=== PATIENT | female | born 1980 | race Caucasian/White ===

== ENCOUNTER 2016-08-13 06:39 | Emergency (ER) | payer OTHER ==
[~2016-08-13] VITALS: Ht 162.6 cm; Wt 46.7 kg
[~2016-08-13 06:39] MED LIST: ALBUTEROL SULF8.5 GM INH; AMBIEN10 MG ORAL; AMITRIPTYLINE100 M1 ORAL; AMITRIPTYLINE100 MG ORAL; AMITRIPTYLINE25 MG PO; ATIVAN0.5 MG ORAL; BACTRIM-DS1 EA ORAL; CIPRO500 MG PO; CLINDAMYCIN HC300 MG PO; CYMBALTA30 MG PO; EXCEDRIN MIGRA1 EAC1 PO; FLONASE ALLERG9.9 ML NS; GABAPENTIN800 MG ORAL; HYDROCORTISON28.4 G5 TOPIC; HYDROXYZINE HCL50 M1 PO; IBUPROFEN600 MG ORAL; IBUPROFEN800 MG ORAL; KEFLEX500 MG ORAL; LYRICA150 MG ORAL; NAPROSYN500 M1 ORAL; NORCO 5-325 TA1 EACH ORAL; PERCOCET 5-3251 EACH ORAL; PROZAC40 MG ORAL; ROBAXIN500 MG PO; TRAMADOL HCL50 MG ORAL; VALIUM10 MG ORAL; VENTOLIN HFA18 GM INH; VICODIN 5-5001 EACH PO; VYVANSE70 MG ORAL; XANAX2 MG ORAL
[2016-08-13] MEDS ORDERED: Ketorolac 60mg Inj IM ONE (07:00)
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
[2016-08-13 08:06] VITALS: BP 131/86
[2016-08-13] MEDS ORDERED: TRAMADOL HCL50 MG ORAL (08:06)
[2016-08-13] MEDS ORDERED: ROBAXIN500 MG PO (08:06)
[2016-08-13] MEDS ORDERED: IBUPROFEN600 MG ORAL (08:06)
[2016-08-13 08:10] VITALS: BP 131/86
--- NOTE | 2016-08-13 08:37 | Diagnostic Imaging Report ---
Indications: Left scapular pain for 3 months Technique: 2 views left scapula Findings: Comparison: Chest radiograph 04/20/11 No fracture, dislocation, lytic destruction, periosteal reaction, surrounding soft tissue swelling, or other acute change is demonstrated. No deformity, alignment abnormality, arthritic change, soft tissue calcification, or other chronic change is demonstrated. IMPRESSION: Negative left scapula series.
--- NOTE | 2016-08-13 08:37 | Diagnostic Imaging Report ---
Indications: Left shoulder pain for 3 months Technique: 3 views of the left shoulder Findings: Comparison: Chest radiograph 04/20/11 No fracture, dislocation, lytic destruction, periosteal reaction, surrounding soft tissue swelling, or other acute change is demonstrated. No deformity, alignment abnormality, arthritic change, soft tissue calcification, or other chronic change is demonstrated. IMPRESSION: Negative left shoulder series.
== END 2016-08-13 08:15 | disposition home or self-care (01) ==
LOC: EMR 07:00
DX: S46.912A Strain of unspecified muscle, fascia and tendon at shoulder and upper arm level, left arm, initial encounter (principal); R11.0 Nausea; R20.0 Anesthesia of skin; F17.200 Nicotine dependence, unspecified, uncomplicated; Z87.19 Personal history of other diseases of the digestive system; Z87.09 Personal history of other diseases of the respiratory system
CPT/HCPCS: 96372; 99284

== ENCOUNTER 2017-11-16 19:39 | Emergency (ER) | payer OTHER ==
[~2017-11-16] VITALS: Ht 167.6 cm; Wt 56.7 kg
[2017-11-16] MEDS ORDERED: Tetracaine 0.5% Opth 4ml Soln RIGHT EYE ONE (20:00)
[2017-11-16] MEDS ORDERED: Fluorescein Strips RIGHT EYE ONE (20:00)
[2017-11-16] MEDS ORDERED: AKTOB1 DROP RIGHT EYE (20:43)
[2017-11-16 20:56] VITALS: BP 110/71
[2017-11-16 20:58] VITALS: BP 110/71
--- NOTE | 2017-11-16 21:11 | Emergency Room Report ---
History of Present Illness General Chief Complaint: Eye Problems Source: Patient Present Illness HPI 37-year-old female wears contact lenses presents with right thigh pain, states that she saw to the [place] yesterday/last night. complaining of right eye pain. Feels like something is in her eye. No other complaints. Tetanus is up-to-date Allergies: Coded Allergies: No Known Allergies (Verified Allergy, Unknown, 04/27/08) Patient History Past Medical History: see triage record Past Surgical History: none Pertinent Family History: none Last Menstrual Period: november Reviewed Nursing Documentation: PMH: Agreed; PSxH: Agreed Nursing Documentation-PMH Hx Hypertension: No Hx Pacemaker: No Hx Asthma: Yes Hx COPD: No Hx Diabetes: No Hx Cancer: No Hx Gastrointestinal Problems: Yes - FIBROMYALGIA Hx Dialysis: No Hx Cerebrovascular Accident: No Hx Seizures: No Review of Systems All Other Systems: negative except mentioned in HPI Physical Exam Vital Signs Date Time Temp Pulse Resp B/P (MAP) Pulse Ox O2 Delivery O2 Flow Rate FiO2 11/16/17 19:45 98.2 83 16 115/73 96 Room Air 98.2 Sp02 EP Interpretation: reviewed, normal General Appearance: normal inspection, well appearing, no apparent distress, alert, GCS 15, non-toxic Head: normocephalic, atraumatic Eyes: bilateral eye PERRL, bilateral eye EOMI, bilateral eye other - Right eye fluorescing stain with very small corneal abrasion noted ENT: normal ENT inspection, normal pharynx, normal voice, moist mucus membranes Respiratory: normal inspection Cardiovascular #1: normal inspection Gastrointestinal: normal inspection Musculoskeletal: normal inspection, normal range of motion Neurologic: normal inspection, alert, oriented x3, responsive Psychiatric: normal inspection, judgement/insight normal Medical Decision Making Diagnostic Impression: Primary Impression: Corneal abrasion, right ER Course 37-year-old female with right eye pain DDX: Corneal abrasion Plan: None ER course: Patient has remained stable during ED stay. Disposition: Patient is to be discharged to home. Prescriptions given are tobramycin eyedrops Patient is instructed to follow up with their compliance administrator in one week Please note that this Emergency Department Report was dictated using [employer] designer technology software, occasionally this can lead to erroneous entry secondary to interpretation by the dictation equipment Last Vital Signs Date Time Temp Pulse Resp B/P (MAP) Pulse Ox O2 Delivery O2 Flow Rate FiO2 5/8/18 20:58 98.2 74 16 110/71 96 Room Air 98.2 Disposition: HOME, SELF-CARE Condition: Stable Scripts Tobramycin Sulf (Tobramycin) 5 Ml Drops 1 DROP RIGHT EYE Q4H for 5 Days, #1 TUBE Prov: Claus Valdovinos M.D. 11/16/17 Patient Instructions: Corneal Abrasion, [id number] Claus Valdovinos M.D. November 16, 2017 21:11
== END 2017-11-16 20:59 | disposition home or self-care (01) ==
LOC: EMR 20:31
DX: S05.01XA Injury of conjunctiva and corneal abrasion without foreign body, right eye, initial encounter (principal); X58.XXXA Exposure to other specified factors, initial encounter; Y92.9 Unspecified place or not applicable; J45.909 Unspecified asthma, uncomplicated
CPT/HCPCS: 99283

== ENCOUNTER 2018-11-10 22:35 | Emergency (ER) | payer OTHER ==
[~2018-11-10] VITALS: Ht 165.1 cm; Wt 63.5 kg
[~2018-11-10 22:35] MED LIST changes: +AKTOB1 DROP RIGHT EYE
--- NOTE | 2018-11-10 22:50 | NUR ---
PT CALLED FOR TRIAGE AND OUTSIDE FEEDING DOG.
--- NOTE | 2018-11-10 23:02 | NUR ---
PT CALLED AGAIN AND NOT IN LOBBY, WENT OUT TO FEED DOG.
--- NOTE | 2018-11-10 23:11 | Emergency Room Report ---
History of Present Illness General Chief Complaint: To Be Triaged Source: Patient Present Illness HPI Patient presents with chief complaint of medication refill. She checked in and said that she has to go fever dog and never returned. I did not see her. She was not triaged. Allergies: Coded Allergies: No Known Allergies (Verified Allergy, Unknown, 04/27/08) Patient History Past Medical History: see triage record, old chart reviewed Past Surgical History: other Pertinent Family History: none Social History: Denies: smoking Now: No Immunizations: other Reviewed Nursing Documentation: PMH: Agreed; PSxH: Agreed Nursing Documentation-PMH Hx Hypertension: No Hx Pacemaker: No Hx Asthma: Yes Hx COPD: No Hx Diabetes: No Hx Cancer: No Hx Gastrointestinal Problems: Yes - FIBROMYALGIA Hx Dialysis: No Hx Cerebrovascular Accident: No Hx Seizures: No Medical Decision Making Disposition: LEFT W/OUT BEING SEEN [facility]errals: [facility] (PCP) Suresh Huitron MD November 10, 2018 23:11
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
[2018-11-10 23:21] VITALS: BP 123/65
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
[2018-11-10 23:31] VITALS: BP 123/65
--- NOTE | 2018-11-10 23:31 | NUR ---
ER DISCHARGE NOTE: Patient is cleared to be discharged per Dr. Huitron. Splin applied to her left forearm. Pt is aox4 on room air with stable vital signs. Pt was given D/C and prescription instructions and was able to verbalize understanding. Pt's ID band removed. Pt is able to ambulate with steady gait and took all belongings. Pt denied that she is homeless.
== END 2018-11-10 23:31 | disposition home or self-care (01) ==
LOC: EMR 23:00
DX: M25.532 Pain in left wrist (principal); J45.909 Unspecified asthma, uncomplicated; M79.7 Fibromyalgia
CPT/HCPCS: 99281

== ENCOUNTER 2019-02-27 04:08 | Emergency (ER) | payer OTHER ==
[~2019-02-27] VITALS: Ht 167.6 cm; Wt 54.4 kg
[2019-02-27 04:30] VITALS: BP 143/72
--- NOTE | 2019-02-27 04:31 | NUR ---
ED Nurse Note: Pt ambulated to ED from home c/o / R sided pain x1week, hx of Fibromyalgia, VSS A&Ox4
[2019-02-27] MEDS ORDERED: Ketorolac 60mg Inj IM ONE (04:45)
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
[2019-02-27] MEDS ORDERED: CYMBALTA60 MG ORAL (04:49)
[2019-02-27] MEDS ORDERED: NAPROXEN250 MG ORAL (04:49)
[2019-02-27] MEDS ORDERED: PAMELOR25 MG ORAL (04:49)
[2019-02-27] MEDS ORDERED: ROBAXIN500 MG PO (04:59)
[2019-02-27 05:00] VITALS: BP 143/72
--- NOTE | 2019-02-27 05:00 | NUR ---
ER DISCHARGE NOTE: Patient is cleared to be discharged per ERMD, pt is aox4, on room air, with stable vital signs. pt was given dc and prescription instructions, pt was able to verbalize understanding, pt id band removed. pt is able to ambulate with steady gait. pt took all belongings.
[2019-02-27] MEDS ORDERED: PROPRANOLOL HCL20 MG ORAL (05:01)
== END 2019-02-27 05:00 | disposition home or self-care (01) ==
LOC: EMR 04:37
DX: M79.7 Fibromyalgia (principal); S29.011A Strain of muscle and tendon of front wall of thorax, initial encounter; J45.909 Unspecified asthma, uncomplicated; F17.200 Nicotine dependence, unspecified, uncomplicated; F19.10 Other psychoactive substance abuse, uncomplicated; Z76.0 Encounter for issue of repeat prescription; X50.9XXA Other and unspecified overexertion or strenuous movements or postures, initial encounter; Y92.9 Unspecified place or not applicable
CPT/HCPCS: 96372; 99283

== ENCOUNTER 2020-06-08 09:15 | Emergency (ER) | payer OTHER ==
[~2020-06-08] VITALS: Ht 165.1 cm; Wt 54.4 kg
[~2020-06-08 09:15] MED LIST changes: +CYMBALTA60 MG ORAL; +IBUPROFEN600 M1 ORAL; +NAPROXEN250 MG ORAL; +NITROFURANTOIN100 M2 ORAL; +PAMELOR25 MG ORAL; +PROPRANOLOL HCL20 MG ORAL; +ROBAXIN-500MG ORAL
[2020-06-08] MEDS ORDERED: VYVANSE40 MG ORAL (09:26)
[2020-06-08 09:35] VITALS: BP 122/78
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
[2020-06-08] MEDS ORDERED: ALBUTEROL SULF8.5 G1 INH (10:28)
[2020-06-08] MEDS ORDERED: NAPROXEN250 MG ORAL (10:28)
[2020-06-08] MEDS ORDERED: ROBAXIN-500MG ORAL (10:28)
[2020-06-08] MEDS ORDERED: GABAPENTIN400 MG ORAL (10:28)
[2020-06-08] MEDS ORDERED: PAMELOR25 MG ORAL ×2 (10:28)
[2020-06-08] MEDS ORDERED: CYMBALTA60 MG ORAL (10:28)
[2020-06-08] MEDS ORDERED: Bacitracin Oint UD TOPIC ONE (10:30)
[2020-06-08] MEDS ORDERED: Ketorolac 60mg Inj IM ONE (10:30)
[2020-06-08] MEDS ORDERED: Naproxen 500mg tab ORAL ONE (10:30)
[2020-06-08] MEDS ORDERED: Tetanus/Diptheria/Pertussis IM ONE (10:30)
[2020-06-08 11:21] VITALS: BP 122/78
== END 2020-06-08 11:22 | disposition home or self-care (01) ==
LOC: EMR 10:10
DX: F31.9 Bipolar disorder, unspecified (principal); F98.8 Other specified behavioral and emotional disorders with onset usually occurring in childhood and adolescence; S20.229A Contusion of unspecified back wall of thorax, initial encounter; S40.819A Abrasion of unspecified upper arm, initial encounter; T74.11XA Adult physical abuse, confirmed, initial encounter; J45.909 Unspecified asthma, uncomplicated; Y04.2XXA Assault by strike against or bumped into by another person, initial encounter; Y93.9 Activity, unspecified; Y92.9 Unspecified place or not applicable
CPT/HCPCS: 90471; 90715; 96372; Z7502; 99283

== ENCOUNTER 2020-06-27 09:58 | Emergency (ER) | payer OTHER ==
[~2020-06-27] VITALS: Ht 162.6 cm; Wt 56.7 kg
[~2020-06-27 09:58] MED LIST changes: +ALBUTEROL SULF8.5 G1 INH; +GABAPENTIN400 MG ORAL; +VYVANSE40 MG ORAL
[2020-06-27 10:17] VITALS: BP 130/90
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
[2020-06-27 10:57] LABS: APPEARANCE,URINE CLOUDY; BILIRUBIN, URINE NEGATIVE (NEGATIVE); COLOR,URINE YELLOW; GLUCOSE, URINE (UA) NEGATIVE (NEGATIVE); KETONES,URINE NEGATIVE (NEGATIVE); PH,URINE 6.5 (4.5-8.0); PROTEIN,URINE NEGATIVE (NEGATIVE)
[2020-06-27 10:58] LABS: LEUKOCYTE ESTERASE ,URINE 3+ (NEGATIVE); NITRITE,URINE POSITIVE (NEGATIVE); UROBILINOGEN,URINE NORMAL MG/DL (0.0-1.0)
[2020-06-27] MEDS ORDERED: Ketorolac 30mg Inj IV ONE (11:15)
[2020-06-27] MEDS ORDERED: Bacitracin Oint UD TOPIC ONE (11:15)
[2020-06-27] MEDS ORDERED: Lidocaine 1%/ 10mg/ml/EPI 0.01mg/ml 20ml INJ ONE (11:26)
[2020-06-27 11:50] LABS: EOSINOPHILS % (AUTO) 5.3 % (0.0-3.0); HEMATOCRIT 34.4 % (37.0-47.0); HEMOGLOBIN 11.6 G/DL (12.0-16.0); LYMPHOCYTES % (AUTO) 22.7 % (20.0-45.0); MEAN CORPUSCULAR VOLUME 82 FL (80-99); MONOCYTES % (AUTO) 8.3 % (1.0-10.0); NEUTROPHILS % (AUTO) 62.7 % (45.0-75.0); PLATELET COUNT 326 K/UL (150-450); RED BLOOD COUNT 4.18 M/UL (4.20-5.40); RED CELL DISTRIBUTION WIDTH 13.4 % (11.6-14.8); WHITE BLOOD COUNT 7.7 K/UL (4.8-10.8)
[2020-06-27 11:55] LABS: ANION GAP 7 mmol/L (5-15); BLOOD UREA NITROGEN 11 mg/dL (7-18); CALCIUM 9.3 MG/DL (8.5-10.1); CARBON DIOXIDE 27 MMOL/L (21-32); CHLORIDE 101 MMOL/L (98-107); CREATININE 0.8 MG/DL (0.55-1.30); POTASSIUM 4.1 MMOL/L (3.5-5.1); SODIUM 135 MMOL/L (136-145)
[2020-06-27 11:57] LABS: INR 1.1 (0.9-1.1)
[2020-06-27 12:00] LABS: ALANINE AMINOTRANSFERASE 15 U/L (12-78); ALBUMIN 3.3 G/DL (3.4-5.0); ALBUMIN/GLOBULIN RATIO 0.7 (1.0-2.7); ALKALINE PHOSPHATASE 83 U/L (46-116); ASPARTATE AMINO TRANSFERASE 15 U/L (15-37); BILIRUBIN,TOTAL 0.2 MG/DL (0.2-1.0); CREATINE KINASE 59 U/L (26-308)
[2020-06-27 13:37] VITALS: BP 131/85
[2020-06-27] MEDS ORDERED: CYMBALTA60 MG ORAL (14:13)
[2020-06-27] MEDS ORDERED: GABAPENTIN400 MG ORAL (14:13)
[2020-06-27] MEDS ORDERED: NITROFURANTOIN100 M2 ORAL (14:13)
[2020-06-27] MEDS ORDERED: NAPROXEN250 MG ORAL (14:13)
[2020-06-27 14:22] VITALS: BP 131/85
--- NOTE | 2020-06-27 14:36 | Diagnostic Imaging Report ---
Indication: Abdominal pain Technique: Supine view of the abdomen Comparison: none Findings: Considerable gas is seen in nondilated large and small bowel. Moderate retained stool is seen within the colon. No gaseous distention of large or small bowel. No masses or unusual calcifications Impression: Nonspecifically prominent, gas-filled but not focally dilated large and small bowel. No definite acute process
--- NOTE | 2020-06-27 14:37 | Diagnostic Imaging Report ---
Indication: Cough Technique: One view of the chest Comparison: 04/20/2011 Findings: Lungs and pleural spaces are clear. Heart size is normal. No significant change Impression: No acute process
== END 2020-06-27 14:23 | disposition home or self-care (01) ==
LOC: EMR 10:20
DX: R10.84 Generalized abdominal pain (principal); N30.00 Acute cystitis without hematuria; R07.82 Intercostal pain; F31.9 Bipolar disorder, unspecified; J45.909 Unspecified asthma, uncomplicated; F17.200 Nicotine dependence, unspecified, uncomplicated
CPT/HCPCS: 36415; 71045; 74018; 80053; 81003; 81025; 82550; 83690; 85025; 85610; 85730; 87086; 87181; 96361; 96374; 96375; J1885; J7030; S0028; Z7502; 99284

== ENCOUNTER 2020-08-16 02:20 | Emergency (ER) | payer OTHER ==
[~2020-08-16] VITALS: Ht 165.1 cm; Wt 54.4 kg
[2020-08-16 02:30] VITALS: BP 140/84
--- NOTE | 2020-08-16 02:30 | NUR ---
ED Nurse Note: Pt walked into ED d/t med refill, when asked pt cannot recall medication. Pt expressing flight of ideas. Cooperative and able to be redirected.
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
--- NOTE | 2020-08-16 03:00 | NUR ---
ED Nurse Note: Attempted to discharge pt, informed pt EDMD referred her to MD to obtain prescriptions. Pt became upset and made accusing statements, "You are all actors," "He isn't a real doctor," and "We are in a global war." Used deescalation techniques and stepped out of room.
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
== END 2020-08-16 03:05 | disposition home or self-care (01) ==
LOC: EMR 02:49
DX: F31.9 Bipolar disorder, unspecified (principal); J45.909 Unspecified asthma, uncomplicated; Z79.899 Other long term (current) drug therapy
CPT/HCPCS: 99281